=== PATIENT | female | born 1985 | race Caucasian/White ===

== ENCOUNTER → 2019-09-21 | Outpatient (CLI) | payer OTHER | LOC: MC.RAD 10:36 | DX: N63.10 Unspecified lump in the right breast, unspecified quadrant (principal); N63.20 Unspecified lump in the left breast, unspecified quadrant ==

== ENCOUNTER → 2019-09-27 | Outpatient (CLI) | payer OTHER | LOC: MC.RAD 07:00 | DX: D24.1 Benign neoplasm of right breast (principal); Z98.82 Breast implant status ==

== ENCOUNTER → 2023-04-20 | Outpatient (CLI) | payer OTHER ==
[~2023-04-20] MED LIST: Gadoterate 20 ML VIAL IV ONE
== END ==
LOC: COL.RAD 08:13
DX: K82.8 Other specified diseases of gallbladder (principal)
CPT/HCPCS: A9575

== ENCOUNTER → 2023-11-15 | Outpatient (CLI) | payer OTHER | LOC: MHCPAIN 09:47 | DX: M54.16 Radiculopathy, lumbar region (principal); M43.17 Spondylolisthesis, lumbosacral region | CPT/HCPCS: G0463 ==